=== PATIENT | male | born 1950 | race Caucasian/White ===

== ENCOUNTER 2017-08-11 10:10 | Inpatient (IN) | payer MEDICARE, OTHER ==
[~2017-08-11] VITALS: Ht 180.3 cm; Wt 121.6 kg
[~2017-08-11 10:10] MED LIST: ALLO100T PO; ASPI81CH49 PO; B 12 PO; BUME1TAB PO; CARV6.2551 PO; DULO60CA PO; FURO40TA4 PO; GABA-339 PO; GABA300C11 GT; INSUINJ3 SC; LUTE10TA PO; METO5TAB56 PO; MULTTAB5 PO; NORT25CA GT; NORTRIPTYLLINE PO; OMEP-194 PO; OMEP20TA34 PO; OMEP2SUS PO; POTA20TA24 PO; SIMV80TA73 PO; ZOLP10TA PO; [UNRECOGNIZED DRUG - OTHER] SC
[2017-08-11] MEDS ORDERED: ACETAMINOPHEN 325 MG TAB PO ONE (13:36)
[2017-08-11 14:13] LABS: Eosinophils # (auto) 0.1 uL; Lymphocytes # (auto) 1.1 uL; White Blood Cell 6.3 10^3/uL (4.4-10.8)
[2017-08-11 14:15] LABS: Basophils # (auto) 0.1 uL; Basophils % (auto) 1.8 % (0.0-2.0); Eosinophils % (auto) 1.8 % (0.0-7.0); Hematocrit 23.5 % (41.0-53.0); Hemoglobin 7.2 g/dL (13.5-17.5); Lymphocytes % (auto) 17.4 % (10.0-50.0); Mean Corpuscular Hgb Conc. 30.4 g/dL (32.0-36.0); Mean Corpuscular Volume 78.8 fL (80.0-100.0); Monocytes # (auto) 0.5 uL; Monocytes % (auto) 8.5 % (0.0-12.0); Neutrophils # (auto) 4.5 uL; Neutrophils % (auto) 70.5 % (37.0-80.0); Nucleated Red Blood Cells % 0.2 %; Platelet Count (auto) 220 10^3/uL (140-450); Red Blood Cells 2.98 10^6/uL (4.5-5.90); Red Cell Distribution Width 19.8 % (11.8-14.3)
[2017-08-11 14:38] LABS: Albumin 3.9 g/dL (3.4-5.0); BUN/Creatinine Ratio 27.3; Bilirubin, Total 0.9 mg/dL (0.2-1.0); Calcium 9.3 mg/dL (8.5-10.1); Potassium 3.4 mmol/L (3.5-5.1); Total Protein 7.9 g/dL (6.4-8.2)
[2017-08-11] MEDS ORDERED: NITROGLYCERIN 0.4 MG SL TAB SL PRN (16:00)
[2017-08-11] MEDS ORDERED: DEXTROSE (50%) 50ML SYRG IV PRN (16:00)
[2017-08-11] MEDS ORDERED: LORazepam 0.5 MG TAB PO PRN (16:00)
[2017-08-11] MEDS ORDERED: TEMAZEPAM 15 MG CAP PO PRN (16:00)
[2017-08-11] MEDS ORDERED: LACTULOSE 20Gm/30ML SOLN PO PRN (16:00)
[2017-08-11] MEDS ORDERED: MORPHINE SULFATE 10 MG/ML INJ 1ML SDV IV PRN (16:00)
[2017-08-11] MEDS ORDERED: HYDROcodone-ACET 5/325MG TAB PO PRN (16:00)
[2017-08-11] MEDS ORDERED: ACETAMINOPHEN 500 MG TAB PO PRN (16:00)
[2017-08-11] MEDS ORDERED: PROMETHAZINE HCL 25 MG/ML 1ML IV PRN (16:00)
[2017-08-11] MEDS ORDERED: MORPHINE SULFATE 10 MG/ML INJ 1ML SDV IV ONE (16:15)
[2017-08-11 16:23] VITALS: BP 118/58
[2017-08-11 16:24] LABS: Urine Bacteria NONE SEEN /hpf (None Seen); Urine Blood Negative /uL (Negative); Urine Hyaline Cast FEW /lpf (0 - 2); Urine Specific Gravity 1.008 (1.001-1.035); Urine WBC <1 /hpf (0 - 3)
[2017-08-11 16:40] VITALS: BP 114/61
[2017-08-11 17:10] VITALS: BP 114/56
[2017-08-11 17:55] VITALS: BP 111/56
[2017-08-11 18:35] VITALS: BP 123/58
[2017-08-11] MEDS: InsuLIN REG 1unit/0.01ml Soln (100units/ml) SC SCH ×2 (18:42→22:00)
[2017-08-11] MEDS: SOD CHL 0.9%/ KCL 20MEQ 1,000 ML IV SCH (18:42)
[2017-08-11] MEDS: ACCU-CHEK COMFORT CURVE STRIP VI SCH ×2 (18:42→22:43)
[2017-08-11 19:05] VITALS: BP 121/65
[2017-08-11] MEDS: MORPHINE SULFATE 10 MG/ML INJ 1ML SDV IV PRN (20:39)
[2017-08-11 20:42] LABS: Hematocrit 25.7 % (41.0-53.0); Hemoglobin 7.9 g/dL (13.5-17.5)
[2017-08-11 22:54] LABS: Hemoglobin 7.6 g/dL (13.5-17.5)
[2017-08-11 22:55] LABS: Hematocrit 24.5 % (41.0-53.0)
[2017-08-12] VITALS (10 sets, daily range): BP systolic 116–144; BP diastolic 55–70
[2017-08-12] MEDS: MORPHINE SULFATE 10 MG/ML INJ 1ML SDV IV PRN ×5 (00:57→18:26)
[2017-08-12 01:13] LABS: Hematocrit 22.5 % (41.0-53.0); Hemoglobin 7.1 g/dL (13.5-17.5)
[2017-08-12] MEDS: SOD CHL 0.9%/ KCL 20MEQ 1,000 ML IV SCH ×2 (05:20→11:09)
[2017-08-12] MEDS: ACCU-CHEK COMFORT CURVE STRIP VI SCH ×3 (06:15→16:56)
[2017-08-12] MEDS: InsuLIN REG 1unit/0.01ml Soln (100units/ml) SC SCH ×3 (06:22→17:00)
[2017-08-12] MEDS ORDERED: PANTOPRAZOLE 40 MG TAB PO SCH (10:00)
[2017-08-12 13:40] LABS: Basophils # (auto) 0.1 uL; Basophils % (auto) 2.2 % (0.0-2.0); Eosinophils # (auto) 0.1 uL; Hemoglobin 8.7 g/dL (13.5-17.5); Lymphocytes # (auto) 0.8 uL; Monocytes # (auto) 0.3 uL; Neutrophils # (auto) 2.7 uL
[2017-08-12 13:42] LABS: Eosinophils % (auto) 2.3 % (0.0-7.0); Hematocrit 27.5 % (41.0-53.0); Lymphocytes % (auto) 19.8 % (10.0-50.0); Mean Corpuscular Hemoglobin 25.7 pg (28.0-32.0); Mean Corpuscular Hgb Conc. 31.5 g/dL (32.0-36.0); Mean Corpuscular Volume 81.6 fL (80.0-100.0); Monocytes % (auto) 8.2 % (0.0-12.0); Neutrophils % (auto) 67.5 % (37.0-80.0); Nucleated Red Blood Cells % 0.8 %; Platelet Count (auto) 164 10^3/uL (140-450); Red Blood Cells 3.37 10^6/uL (4.5-5.90); White Blood Cell 4.1 10^3/uL (4.4-10.8)
[2017-08-12 14:02] LABS: Albumin 3.5 g/dL (3.4-5.0); BUN/Creatinine Ratio 30.5; Bilirubin, Total 1.6 mg/dL (0.2-1.0); Calcium 8.8 mg/dL (8.5-10.1); Potassium 3.1 mmol/L (3.5-5.1)
[2017-08-12] MEDS ORDERED: FUROSEMIDE 20 MG/2 ML VIAL IV ONE (16:45)
[2017-08-12] MEDS ORDERED: POTASSIUM CHL 20 Meq TABLET PO ONE (16:45)
== END 2017-08-12 19:05 | disposition home or self-care (01) | DRG 812 ==
LOC: ER 10:10 → TELE 10:11 → TELE-EAST 23:55
PROVIDERS: ADMIT Internal Medicine; ATTEND Internal Medicine
PROC: 30233N1 Transfusion of Nonautologous Red Blood Cells into Peripheral Vein, Percutaneous Approach (ICD-10-PCS; principal; 2017-08-11)
DX: D46.9 Myelodysplastic syndrome, unspecified (principal); E11.22 Type 2 diabetes mellitus with diabetic chronic kidney disease; I50.32 Chronic diastolic (congestive) heart failure; I13.0 Hypertensive heart and chronic kidney disease with heart failure and stage 1 through stage 4 chronic kidney disease, or unspecified chronic kidney disease; E78.5 Hyperlipidemia, unspecified; J44.9 Chronic obstructive pulmonary disease, unspecified; K76.0 Fatty (change of) liver, not elsewhere classified; M10.9 Gout, unspecified; E66.9 Obesity, unspecified; I70.90 Unspecified atherosclerosis; N18.3 Chronic kidney disease, stage 3 (moderate); Z80.1 Family history of malignant neoplasm of trachea, bronchus and lung; Z82.49 Family history of ischemic heart disease and other diseases of the circulatory system; Z85.46 Personal history of malignant neoplasm of prostate; Z83.3 Family history of diabetes mellitus; Z90.79 Acquired absence of other genital organ(s); Z87.11 Personal history of peptic ulcer disease; Z90.49 Acquired absence of other specified parts of digestive tract; Z87.891 Personal history of nicotine dependence; Z68.37 Body mass index [BMI] 37.0-37.9, adult; Z92.21 Personal history of antineoplastic chemotherapy; Z79.899 Other long term (current) drug therapy
CPT/HCPCS: 36415; 36430; 71045; 80053; 81001; 82962; 83036; 85014; 85018; 85025; 86850; 86900; 86901; 86920; 93005; 94761; 96374; 96375

== ENCOUNTER 2017-09-04 08:07 | Inpatient (IN) | payer MEDICARE, OTHER ==
[~2017-09-04] VITALS: Ht 180.3 cm; Wt 123.0 kg
[2017-09-04 09:17] LABS: Basophils # (auto) 0 uL; Basophils % (auto) 0.2 % (0.0-2.0); Eosinophils # (auto) 0 uL; Hematocrit 27.9 % (41.0-53.0); Hemoglobin 8.7 g/dL (13.5-17.5); Lymphocytes # (auto) 0.5 uL; Lymphocytes % (auto) 4.8 % (10.0-50.0); Mean Corpuscular Hemoglobin 25.1 pg (28.0-32.0); Mean Corpuscular Hgb Conc. 31.2 g/dL (32.0-36.0); Mean Corpuscular Volume 80.6 fL (80.0-100.0); Monocytes # (auto) 0.3 uL; Monocytes % (auto) 2.6 % (0.0-12.0); Neutrophils # (auto) 9.5 uL; Neutrophils % (auto) 92.4 % (37.0-80.0); Nucleated Red Blood Cells % 0.2 %; Platelet Count (auto) 164 10^3/uL (140-450); Red Blood Cells 3.46 10^6/uL (4.5-5.90); White Blood Cell 10.3 10^3/uL (4.4-10.8)
[2017-09-04 09:38] LABS: Albumin 3.4 g/dL (3.4-5.0); BUN/Creatinine Ratio 21.4; Bilirubin, Total 1.7 mg/dL (0.2-1.0); Calcium 8.8 mg/dL (8.5-10.1); Magnesium 2.2 mg/dL (1.6-2.6); Potassium 3.1 mmol/L (3.5-5.1); Total Protein 7.5 g/dL (6.4-8.2)
[2017-09-04] MEDS ORDERED: SODIUM CHLORIDE 0.9% 1,000 ML IV ONE ×2 (10:04→13:00)
[2017-09-04] MEDS ORDERED: PROMETHAZINE HCL 25 MG/ML 1ML IV ONE (10:15)
[2017-09-04] MEDS ORDERED: NALBUPHINE HCL 10 MG/1ml INJECTION IV ONE (10:15)
[2017-09-04 10:35] LABS: Lactic Acid w/Reflex 6.7 mmol/L (0.4-2.0)
[2017-09-04 10:37] LABS: INR 1.33 (0.9-1.15); Partial Thromboplastin Time 30.2 sec (22.64-33.71); Prothrombin Time 14.5 sec (9.37-12.3)
[2017-09-04] MEDS ORDERED: cefTRIAXone 1GM/10ml IVPUSH 10 ML IV ONE (12:45)
[2017-09-04] MEDS ORDERED: MORPHINE SULFATE 4 MG/ML SYR/VIAL IV PRN ×2 (13:00)
[2017-09-04] MEDS ORDERED: OSELTAMIVIR 75 MG CAP PO ONE (13:00)
[2017-09-04] MEDS ORDERED: ACETAMINOPHEN 500 MG TAB PO PRN (13:00)
[2017-09-04] MEDS ORDERED: TEMAZEPAM 15 MG CAP PO PRN (13:00)
[2017-09-04] MEDS ORDERED: PROMETHAZINE HCL 25 MG/ML 1ML IV PRN (13:00)
[2017-09-04] MEDS ORDERED: ALBUTEROL SULF 2.5 MG/0.5ML(0.5%) NEB SOLN NEB PRN (13:00)
[2017-09-04] MEDS ORDERED: LORazepam 0.5 MG TAB PO PRN (13:00)
[2017-09-04] MEDS ORDERED: NITROGLYCERIN 0.4 MG SL TAB SL PRN (13:00)
[2017-09-04] MEDS ORDERED: HYDROcodone-ACET 5/325MG TAB PO PRN (13:00)
[2017-09-04] MEDS ORDERED: AZITHROMYCIN 500MG/ 250ML 250 ML IV SCH (13:15)
[2017-09-04] MEDS ORDERED: OSELTAMIVIR 30 MG CAP PO ONE (13:15)
[2017-09-04 13:46] LABS: Urine Bacteria MOD /hpf (None Seen); Urine Blood 3+ /uL (Negative); Urine Specific Gravity 1.019 (1.001-1.035); Urine WBC 3790 /hpf (0 - 3); Urine WBC Clumps PRESENT /hpf (None Seen)
[2017-09-04 14:10] LABS: CRP High Sensitivity 17.5 mg/dL (< 0.3)
[2017-09-04 14:39] LABS: Amphetamine Screen, Urine NEGATIVE (NEGATIVE); Barbiturate Scree,Urine NEGATIVE (NEGATIVE); Benzodiazephine Screen, Urine NEGATIVE (NEGATIVE); Cannabinoid Screen, Urine POSITIVE (NEGATIVE); Cocaine Screen, Urine NEGATIVE (NEGATIVE); Opiate Scree,Urine NEGATIVE (NEGATIVE); Phencyclidine Screen, Urine NEGATIVE (NEGATIVE)
[2017-09-04] MEDS ORDERED: NORT25CA PO (14:56)
[2017-09-04] MEDS ORDERED: MET50T PO (14:56)
[2017-09-04] MEDS ORDERED: BUME2TAB3 PO (14:56)
[2017-09-04] MEDS ORDERED: POTA20TA53 PO (14:56)
[2017-09-04] MEDS ORDERED: ATOR20TA PO (14:56)
[2017-09-04] MEDS ORDERED: MULT-192 PO (14:56)
[2017-09-04] MEDS ORDERED: SPIR50TA23 PO (14:56)
[2017-09-04] MEDS ORDERED: GABA300C10 PO (14:56)
[2017-09-04] MEDS ORDERED: FLUT1INH6 IN (14:56)
[2017-09-04 15:46] VITALS: BP 87/46
[2017-09-04] MEDS ORDERED: DEXTROSE (50%) 50ML SYRG IV PRN (17:15)
[2017-09-04] MEDS: InsuLIN REG 1unit/0.01ml Soln (100units/ml) SC SCH (17:55)
[2017-09-04] MEDS: SODIUM BICARB 50ML SYR 75 ML in SOD CHL 0.45% 1,000 ML IV SCH (19:00)
[2017-09-04] MEDS: ACCU-CHEK COMFORT CURVE STRIP VI SCH (20:19)
[2017-09-04] MEDS ORDERED: diphenhdrAMINE HCL 50 MG/1 ML VL IV ONE (21:00)
[2017-09-04] MEDS ORDERED: HALOPERIDOL LACTATE 5 MG/ML INJ VIAL IM ONE (21:00)
[2017-09-04] MEDS ORDERED: LORazepam 2MG/ML-1ML VIAL ONE (21:04)
[2017-09-04] MEDS: GABAPENTIN 300 MG CAP PO SCH (21:12)
[2017-09-04] MEDS: NORTRIPTYLINE HCL 25 MG CAP PO SCH (21:12)
[2017-09-04] MEDS: ALLOPURINOL 100 MG TAB PO SCH (21:13)
[2017-09-04] MEDS ORDERED: LORazepam 2MG/ML-1ML VIAL IV ONE (21:15)
[2017-09-04] MEDS ORDERED: SIMVASTATIN 80 MG PO SCH (22:00)
[2017-09-04] MEDS ORDERED: OMEPRAZOLE 20 MG PO SCH (22:00)
[2017-09-04] MEDS ORDERED: ZOLPIDEM TARTRATE 5 MG TAB PO SCH (22:00)
[2017-09-04] MEDS ORDERED: ATORVASTATIN 20 MG TAB PO SCH (22:00)
[2017-09-05] VITALS (38 sets, daily range): BP systolic 73–127; BP diastolic 30–74
[2017-09-05] MEDS ORDERED: VANCOMYCIN PER PHARMACY 0 MG IV SCH (00:30)
[2017-09-05] MEDS ORDERED: SODIUM CHLORIDE 0.9% 500 ML IV ONE (00:30)
[2017-09-05] MEDS ORDERED: VANCOMYCIN 1GM/250ML 250 ML IV ONE (01:00)
[2017-09-05] MEDS ORDERED: LORazepam 2MG/ML-1ML VIAL IV PRN (01:15)
[2017-09-05] MEDS: ACCU-CHEK COMFORT CURVE STRIP VI SCH ×12 (04:00→22:30)
[2017-09-05] MEDS: InsuLIN REG 1unit/0.01ml Soln (100units/ml) SC SCH ×3 (04:00→09:10)
[2017-09-05] MEDS ORDERED: METOPROLOL TARTRATE 1MG/1ML-5ML VIAL IV ONE (04:30)
[2017-09-05] MEDS ORDERED: ETOMIDATE (2MG/ML) 20ML VIAL IV ONE (05:14)
[2017-09-05] MEDS ORDERED: SUCCINYLCHOLINE CHLORIDE 20 MG/ML 10ML VIAL IV ONE (05:14)
[2017-09-05] MEDS ORDERED: MIDAZOLAM DRIP 50 mg/50mL 50 ML IV ONE (05:16)
[2017-09-05] MEDS ORDERED: PROPOFOL 100 ML IV ONE (05:16)
[2017-09-05 05:24] LABS: Hematocrit 27.4 % (41.0-53.0); Hemoglobin 8.1 g/dL (13.5-17.5); Mean Corpuscular Hemoglobin 24.5 pg (28.0-32.0); Mean Corpuscular Hgb Conc. 29.5 g/dL (32.0-36.0); Mean Corpuscular Volume 83.2 fL (80.0-100.0); Platelet Count (auto) 178 10^3/uL (140-450); Red Blood Cells 3.29 10^6/uL (4.5-5.90); White Blood Cell 18.6 10^3/uL (4.4-10.8)
[2017-09-05] MEDS ORDERED: SODIUM BICARBONATE 8.4% INJ 50ML SYRINGE ONE (05:24)
[2017-09-05 05:38] LABS: Basophils % (manual) 0 (0.0-2.0); Blast Cells 0; Eosinophils % (manual) 0 (0-7); Metamyelocytes % 0; Monocytes % (manual) 0 (0-12); Myelocytes % 0; Promyelocytes % 0; Reactive Lymphocytes 0
[2017-09-05] MEDS: MIDAZOLAM DRIP 50 mg/50mL 50 ML IV SCH ×2 (05:40→20:41)
[2017-09-05] MEDS: PROPOFOL 100 ML IV SCH (05:40)
[2017-09-05] MEDS: SODIUM BICARB 50ML SYR 75 ML in SOD CHL 0.45% 1,000 ML IV SCH (05:44)
[2017-09-05] MEDS ORDERED: SODIUM BICARBONATE 8.4 % INJ 50ML VIAL IV ONE (05:45)
[2017-09-05 05:55] LABS: Albumin 2.9 g/dL (3.4-5.0); BUN/Creatinine Ratio 18.1; Bilirubin, Total 1.2 mg/dL (0.2-1.0); Calcium 7.8 mg/dL (8.5-10.1); Potassium 4.3 mmol/L (3.5-5.1)
[2017-09-05] MEDS: GABAPENTIN 300 MG CAP PO SCH ×3 (06:00→22:00)
[2017-09-05 06:44] LABS: Band Neutrophils % (manual) 25; Lymphocytes % (manual) 1 (10.0-50.0)
[2017-09-05] MEDS: PIPERACILLIN-TAZOB 2.25GM 50 ML IV SCH ×3 (07:37→23:06)
[2017-09-05] MEDS ORDERED: cefTRIAXone 1GM/10ml IVPUSH 10 ML IV SCH (09:00)
[2017-09-05] MEDS ORDERED: OSELTAMIVIR 30 MG CAP PO SCH (10:00)
[2017-09-05] MEDS ORDERED: DEXTROSE (50%) 50ML SYRG IV PRN (10:30)
[2017-09-05] MEDS: DULoxetine HCL 30 MG CAP PO SCH (11:07)
[2017-09-05 11:14] LABS: Hematocrit 25.9 % (41.0-53.0); Hemoglobin 7.4 g/dL (13.5-17.5); Mean Corpuscular Hemoglobin 24.5 pg (28.0-32.0); Mean Corpuscular Hgb Conc. 28.5 g/dL (32.0-36.0); Mean Corpuscular Volume 86.1 fL (80.0-100.0); Platelet Count (auto) 152 10^3/uL (140-450); Red Blood Cells 3.01 10^6/uL (4.5-5.90); White Blood Cell 13.6 10^3/uL (4.4-10.8)
[2017-09-05 11:15] LABS: Red Cell Distribution Width 22.9 % (11.8-14.3)
[2017-09-05] MEDS: PANTOPRAZOLE 40 MG TAB PO SCH (11:16)
[2017-09-05] MEDS: ALLOPURINOL 100 MG TAB PO SCH ×2 (11:17→22:00)
[2017-09-05] MEDS: ASPirin 81 mg TAB PO SCH (11:17)
[2017-09-05] MEDS: SODIUM BICARBONATE 50ML VIAL 150 ML in D5W 5% 1,000 ML IV SCH ×2 (11:20→19:57)
[2017-09-05] MEDS: InsuLIN R (HUMAN) 100 UNITS in SODIUM CHL 0.9% 99 ML IV SCH (11:39)
[2017-09-05 11:40] LABS: BUN/Creatinine Ratio 17.5; Calcium 7.5 mg/dL (8.5-10.1); Magnesium 2.6 mg/dL (1.6-2.6); Potassium 4.3 mmol/L (3.5-5.1)
[2017-09-05 11:49] LABS: Band Neutrophils % (manual) 14; Basophils % (manual) 0 (0.0-2.0); Blast Cells 0; Lymphocytes % (manual) 7 (10.0-50.0); Metamyelocytes % 0; Myelocytes % 0; Promyelocytes % 0; Reactive Lymphocytes 0
[2017-09-05 11:50] LABS: Eosinophils % (manual) 1 (0-7); Monocytes % (manual) 1 (0-12)
[2017-09-05] MEDS: SODIUM CHLORIDE 0.9% 1,000 ML IV SCH ×2 (11:51→12:51)
[2017-09-05 12:12] LABS: Phosphorus 10.6 mg/dL (2.5-4.90)
[2017-09-05] MEDS ORDERED: D5W/SOD CHLO 0.9% 1,000 ML IV SCH (14:00)
[2017-09-05] MEDS ORDERED: SODIUM CHLORIDE 0.9% 1,000 ML IV ONE (14:00)
[2017-09-05] MEDS ORDERED: NOREPINEPHRINE 8 MG/250ML KIT 250 ML IV SCH ×3 (14:07→22:15)
[2017-09-05] MEDS ORDERED: SODIUM CHLORIDE 0.9% 1,000 ML IV SCH ×2 (14:25→16:25)
[2017-09-05] MEDS ORDERED: SODIUM CHL 0.9% 1000 ML BAG XX ONE (15:30)
[2017-09-05 17:05] LABS: BUN/Creatinine Ratio 16.1; Calcium 7.2 mg/dL (8.5-10.1); Potassium 4.9 mmol/L (3.5-5.1)
[2017-09-05] MEDS ORDERED: PHENYLEPHRINE INJ 20 MG in SODIUM CHL 0.9% 250 ML IV SCH ×2 (17:06→18:21)
[2017-09-05] MEDS ORDERED: DOPamine 1600MCG/ML D5W 250 ML IV SCH (18:21)
[2017-09-05] MEDS ORDERED: DOBUTamine 1000MCG/ML 250 ML IV SCH (18:21)
[2017-09-05] MEDS ORDERED: EPINEPHrine HCL 250 ML IV SCH (18:21)
[2017-09-05] MEDS ORDERED: SODIUM CHLORIDE 0.9% 3,400 ML IV ONE (18:30)
[2017-09-05] MEDS ORDERED: HEPARIN 1,000 UNITS/ml 1ML VIAL ONE (18:41)
[2017-09-05] MEDS ORDERED: LIDOCAINE 1% HCL (LOCAL ANESTH.) INJ 20ML MDV ID ONE (19:00)
[2017-09-05 19:16] LABS: Lactic Acid w/Reflex 9.1 mmol/L (0.4-2.0)
[2017-09-05] MEDS ORDERED: PHENYLEPHRINE IV 500 ML IV ONE (20:23)
[2017-09-05] MEDS: NORTRIPTYLINE HCL 25 MG CAP PO SCH (22:00)
[2017-09-05] MEDS ORDERED: PRAVASTATIN SODIUM 20 MG TAB PO SCH (22:00)
[2017-09-05 22:10] LABS: Lactic Acid w/Reflex 13.9 mmol/L (0.4-2.0)
[2017-09-05] MEDS ORDERED: PHENYLEPHRINE INJ 40 MG in D5W 5% 250 ML IV SCH (22:15)
[2017-09-05] MEDS: SODIUM CHLOR 0.9% PF (SALINE LOCK) 10ML VIAL IV SCH (22:24)
[2017-09-05] MEDS: VASOPRESSIN 50 UNITS in D5W 5% 247.5 ML IV SCH ×2 (22:30→22:35)
[2017-09-05] MEDS ORDERED: VASOPRESSIN 20 UNIT/ML ONE (22:30)
[2017-09-05] MEDS ORDERED: ALBUMIN 25% 100 ML IV ONE ×2 (22:40→22:45)
[2017-09-05] MEDS: PHENYLEPHRINE INJ 40 MG in SODIUM CHL 0.9% 250 ML IV SCH (23:55)
[2017-09-06] VITALS (100 sets, daily range): BP systolic 86–144; BP diastolic 27–89
[2017-09-06] MEDS: ACCU-CHEK COMFORT CURVE STRIP VI SCH ×15 (00:13→23:30)
[2017-09-06 01:05] LABS: Hemoglobin 8.3 g/dL (13.5-17.5); White Blood Cell 18.7 10^3/uL (4.4-10.8)
[2017-09-06 01:06] LABS: Mean Corpuscular Hemoglobin 25.5 pg (28.0-32.0); Mean Corpuscular Hgb Conc. 29.7 g/dL (32.0-36.0); Mean Corpuscular Volume 85.8 fL (80.0-100.0); Platelet Count (auto) 237 10^3/uL (140-450); Red Blood Cells 3.26 10^6/uL (4.5-5.90)
[2017-09-06 01:08] LABS: Red Cell Distribution Width 20.8 % (11.8-14.3)
[2017-09-06 01:10] LABS: Basophils % (manual) 0 (0.0-2.0); Blast Cells 0; Eosinophils % (manual) 0 (0-7); Promyelocytes % 0; Reactive Lymphocytes 0
[2017-09-06 01:20] LABS: BUN/Creatinine Ratio 13.1; Calcium 7.5 mg/dL (8.5-10.1); Potassium 3.6 mmol/L (3.5-5.1)
[2017-09-06 01:53] LABS: Band Neutrophils % (manual) 9; Lymphocytes % (manual) 9 (10.0-50.0); Metamyelocytes % 2; Monocytes % (manual) 6 (0-12); Myelocytes % 1
[2017-09-06] MEDS: PHENYLEPHRINE INJ 40 MG in SODIUM CHL 0.9% 250 ML IV SCH (02:50)
[2017-09-06] MEDS: PROPOFOL 100 ML IV SCH (03:00)
[2017-09-06] MEDS ORDERED: PHENYLEPHRINE IV 250 ML IV ONE (04:12)
[2017-09-06] MEDS ORDERED: PHENYLEPHRINE HCL 10 MG/ML VL ONE (04:12)
[2017-09-06] MEDS: SODIUM BICARBONATE 50ML VIAL 150 ML in D5W 5% 1,000 ML IV SCH ×3 (05:09→19:00)
[2017-09-06] MEDS ORDERED: SODIUM BICARBONATE 8.4 % INJ 50ML VIAL IV ONE ×5 (05:30→22:00)
[2017-09-06] MEDS: GABAPENTIN 300 MG CAP PO SCH (06:00)
[2017-09-06] MEDS: PIPERACILLIN-TAZOB 2.25GM 50 ML IV SCH ×3 (08:00→21:59)
[2017-09-06 08:23] LABS: Hematocrit 26.4 % (41.0-53.0); Hemoglobin 7.5 g/dL (13.5-17.5); Mean Corpuscular Hemoglobin 25.7 pg (28.0-32.0); Mean Corpuscular Hgb Conc. 28.4 g/dL (32.0-36.0); Mean Corpuscular Volume 90.5 fL (80.0-100.0); Platelet Count (auto) 226 10^3/uL (140-450); Red Blood Cells 2.92 10^6/uL (4.5-5.90); White Blood Cell 19.2 10^3/uL (4.4-10.8)
[2017-09-06 08:42] LABS: Red Cell Distribution Width 21.4 % (11.8-14.3)
[2017-09-06 08:43] LABS: Band Neutrophils % (manual) 0; Basophils % (manual) 0 (0.0-2.0); Blast Cells 0; Eosinophils % (manual) 0 (0-7); Myelocytes % 0; Promyelocytes % 0; Reactive Lymphocytes 0
[2017-09-06 08:47] LABS: Albumin 2.2 g/dL (3.4-5.0); BUN/Creatinine Ratio 12.4; Bilirubin, Total 1.8 mg/dL (0.2-1.0); Calcium 7.2 mg/dL (8.5-10.1); Magnesium 3.1 mg/dL (1.6-2.6); Potassium 5.3 mmol/L (3.5-5.1); Total Protein 5.5 g/dL (6.4-8.2)
[2017-09-06 08:51] LABS: Lactic Acid w/Reflex 22.6 mmol/L (0.4-2.0)
[2017-09-06] MEDS ORDERED: PHENYLEPHRINE INJ 40 MG in D5W 5% 250 ML IV SCH (09:31)
[2017-09-06] MEDS: PANTOPRAZOLE 40 MG TAB PO SCH (10:00)
[2017-09-06] MEDS: ALLOPURINOL 100 MG TAB PO SCH (10:00)
[2017-09-06] MEDS: ASPirin 81 mg TAB PO SCH (10:00)
[2017-09-06] MEDS: DULoxetine HCL 30 MG CAP PO SCH (10:00)
[2017-09-06] MEDS: SODIUM CHLOR 0.9% PF (SALINE LOCK) 10ML VIAL IV SCH ×2 (10:00→21:10)
[2017-09-06] MEDS ORDERED: LINEZOLID 600MG/300ML 300 ML IV SCH (10:00)
[2017-09-06] MEDS ORDERED: SODIUM BICARBONATE 8.4% INJ 50ML SYRINGE ONE ×3 (10:16→21:07)
[2017-09-06] MEDS: InsuLIN R (HUMAN) 100 UNITS in SODIUM CHL 0.9% 99 ML IV SCH (10:45)
[2017-09-06] MEDS ORDERED: LEVOFLOXACIN 500MG 100 ML IV SCH (11:30)
[2017-09-06] MEDS ORDERED: PHENYLEPHRINE INJ 80 MG in SODIUM CHL 0.9% 250 ML IV SCH (12:11)
[2017-09-06] MEDS ORDERED: NOREPINEPHRINE BITARTRATE 32 MG in D5W 5% 218 ML IV SCH (12:11)
[2017-09-06] MEDS ORDERED: EPINEPHrine HCL INJECTION 8 MG in D5W 5% 250 ML IV SCH (12:11)
[2017-09-06] MEDS ORDERED: PHENYLEPHRINE INJ 80 MG in D5W 5% 250 ML IV SCH (12:45)
[2017-09-06] MEDS ORDERED: D5W 5% IV SCH (12:45)
[2017-09-06] MEDS ORDERED: EPINEPHRINE HCL IV SCH (12:45)
[2017-09-06] MEDS ORDERED: HYDROCORTISONE SOD SUCC 100 MG/2ML INJ VIAL IV ONE (13:30)
[2017-09-06 13:54] LABS: Lymphocytes % (manual) 4 (10.0-50.0); Metamyelocytes % 4; Monocytes % (manual) 7 (0-12)
[2017-09-06] MEDS ORDERED: CALCIUM CHL 100MG/ML 500 MG in D5W 5% 100 ML IV ONE (17:00)
[2017-09-06] MEDS ORDERED: SODIUM BICARBONATE 50ML VIAL 50 ML in SOD CHL 0.45% 1,000 ML IV SCH (17:15)
[2017-09-06 17:24] LABS: Hemoglobin 8.5 g/dL (13.5-17.5)
[2017-09-06] MEDS: FLUCONAZOLE 200MG/100ML 100 ML IV SCH ×2 (18:00→19:00)
[2017-09-06 18:56] LABS: Lactic Acid w/Reflex 29.8 mmol/L (0.4-2.0)
[2017-09-06 20:41] LABS: Lactic Acid w/Reflex 30.6 mmol/L (0.4-2.0)
[2017-09-06] MEDS ORDERED: HYDROCORTISONE SOD SUCC 100 MG/2ML INJ VIAL IV SCH (22:00)
[2017-09-07] VITALS (10 sets, daily range): BP systolic 88–124; BP diastolic 35–62
[2017-09-07] MEDS: SODIUM BICARBONATE 50ML VIAL 150 ML in D5W 5% 1,000 ML IV SCH (00:32)
[2017-09-07 00:55] LABS: Hematocrit 29.8 % (41.0-53.0)
[2017-09-07 00:56] LABS: Hemoglobin 8.1 g/dL (13.5-17.5); Mean Corpuscular Hemoglobin 26.1 pg (28.0-32.0); Mean Corpuscular Hgb Conc. 27.3 g/dL (32.0-36.0); Mean Corpuscular Volume 95.9 fL (80.0-100.0); Platelet Count (auto) 185 10^3/uL (140-450); Red Blood Cells 3.11 10^6/uL (4.5-5.90); White Blood Cell 16.7 10^3/uL (4.4-10.8)
[2017-09-07 01:04] LABS: Red Cell Distribution Width 20.3 % (11.8-14.3)
[2017-09-07 01:05] LABS: Basophils % (manual) 0 (0.0-2.0); Eosinophils % (manual) 0 (0-7); Metamyelocytes % 0; Myelocytes % 0; Promyelocytes % 0
[2017-09-07 01:06] LABS: Albumin 1.8 g/dL (3.4-5.0); BUN/Creatinine Ratio 10.5; Calcium 6.9 mg/dL (8.5-10.1); Magnesium 3.2 mg/dL (1.6-2.6)
[2017-09-07] MEDS: ACCU-CHEK COMFORT CURVE STRIP VI SCH (01:12)
[2017-09-07 01:13] LABS: Bilirubin, Total 2.4 mg/dL (0.2-1.0); Total Protein 4.9 g/dL (6.4-8.2)
[2017-09-07 01:17] LABS: Potassium 6.4 mmol/L (3.5-5.1)
[2017-09-07 01:45] LABS: Band Neutrophils % (manual) 9; Blast Cells 1; Lymphocytes % (manual) 12 (10.0-50.0); Monocytes % (manual) 5 (0-12); Reactive Lymphocytes 1
[2017-09-07 02:29] LABS: INR 2.24 (0.9-1.15); Prothrombin Time 24.6 sec (9.37-12.3)
[2017-09-07 02:36] LABS: Lactic Acid w/Reflex 39.4 mmol/L (0.4-2.0)
[2017-09-07] MEDS ORDERED: SODIUM BICARBONATE 8.4% INJ 50ML SYRINGE IV ONE (05:43)
[2017-09-07] MEDS ORDERED: EPINEPHrine HCL 1 MG/10 ML SYRG IV ONE (05:43)
[2017-09-07] MEDS ORDERED: DEXTROSE (50%) 50ML SYRG IV ONE (05:43)
[2017-09-07] MEDS ORDERED: CALCIUM CHLOR(10%) 100MG/ML 10ML SYRINGE IV ONE (05:43)
[2017-09-07] MEDS ORDERED: PANTOPRAZOLE 40 MG/10 ML VIAL IV SCH (10:00)
[2017-09-07] MEDS ORDERED: FLUCONAZOLE 200MG/100ML 100 ML IV SCH (10:00)
== END 2017-09-07 05:44 | disposition expired | DRG 871 ==
LOC: ER 08:07 → TELE 08:08 → ICU WEST 09-05 16:43
PROVIDERS: ADMIT Internal Medicine; ATTEND Internal Medicine
PROC: 0BH17EZ Insertion of Endotracheal Airway into Trachea, Via Natural or Artificial Opening (ICD-10-PCS; principal; 2017-09-05)
PROC: 5A1945Z Respiratory Ventilation, 24-96 Consecutive Hours (ICD-10-PCS; 2017-09-05)
PROC: 30233N1 Transfusion of Nonautologous Red Blood Cells into Peripheral Vein, Percutaneous Approach (ICD-10-PCS; 2017-09-05)
PROC: 02HV33Z Insertion of Infusion Device into Superior Vena Cava, Percutaneous Approach (ICD-10-PCS; 2017-09-05)
PROC: 06HT33Z Insertion of Infusion Device into Right Foot Vein, Percutaneous Approach (ICD-10-PCS; 2017-09-05)
PROC: 5A1D70Z Performance of Urinary Filtration, Intermittent, Less than 6 Hours Per Day (ICD-10-PCS; 2017-09-05)
PROC: 02HV33Z Insertion of Infusion Device into Superior Vena Cava, Percutaneous Approach (ICD-10-PCS; 2017-09-06)
PROC: 5A1D70Z Performance of Urinary Filtration, Intermittent, Less than 6 Hours Per Day (ICD-10-PCS; 2017-09-06)
DX: A41.51 Sepsis due to Escherichia coli [E. coli] (principal); N17.0 Acute kidney failure with tubular necrosis; J96.00 Acute respiratory failure, unspecified whether with hypoxia or hypercapnia; K72.00 Acute and subacute hepatic failure without coma; R65.21 Severe sepsis with septic shock; D46.9 Myelodysplastic syndrome, unspecified; E86.9 Volume depletion, unspecified; E44.1 Mild protein-calorie malnutrition; E87.1 Hypo-osmolality and hyponatremia; I13.0 Hypertensive heart and chronic kidney disease with heart failure and stage 1 through stage 4 chronic kidney disease, or unspecified chronic kidney disease; N39.0 Urinary tract infection, site not specified; E11.21 Type 2 diabetes mellitus with diabetic nephropathy; K74.60 Unspecified cirrhosis of liver; E87.6 Hypokalemia; N18.3 Chronic kidney disease, stage 3 (moderate); E11.22 Type 2 diabetes mellitus with diabetic chronic kidney disease; D63.8 Anemia in other chronic diseases classified elsewhere; E78.5 Hyperlipidemia, unspecified; F12.90 Cannabis use, unspecified, uncomplicated; I50.9 Heart failure, unspecified; J44.9 Chronic obstructive pulmonary disease, unspecified; M10.9 Gout, unspecified; Z66 Do not resuscitate; E66.9 Obesity, unspecified; M54.5 Low back pain; Z82.49 Family history of ischemic heart disease and other diseases of the circulatory system; Z83.3 Family history of diabetes mellitus; Z85.46 Personal history of malignant neoplasm of prostate; Z87.11 Personal history of peptic ulcer disease; Z87.891 Personal history of nicotine dependence; Z90.49 Acquired absence of other specified parts of digestive tract; Z99.2 Dependence on renal dialysis; Z68.37 Body mass index [BMI] 37.0-37.9, adult
CPT/HCPCS: 36415; 36569; 36600; 51702; 71045; 71046; 73501; 76775; 80048; 80053; 80061; 80307; 81001; 82010; 82550; 82805; 82947; 82962; 83605; 83615; 83735; 83880; 83930; 84100; 84443; 84484; 85007; 85014; 85018; 85025; 85027; 85379; 85610; 85652; 85730; 86141; 86850; 86900; 86901; 86920; 87040; 87070; 87077; 87081; 87086; 87088; 87186; 87205; 87804; 90935; 93005; 94003; 94761; 96374; 96375; C1751; G9035; J0171; J0330; J1450; J1642; J1815; J1956; J2001; J2250; J2543; J2704; J3490; J7060